=== PATIENT | female | born 1995 | race Caucasian/White ===

== ENCOUNTER 2017-08-17 15:06 | Emergency (ER) | payer MEDICAID ==
[~2017-08-17] VITALS: Ht 160 cm; Wt 58.6 kg
[~2017-08-17 15:06] MED LIST: BIRTH CONTROL
[2017-08-17 17:09] VITALS: BP 107/63
[2017-08-17] MEDS ORDERED: KETOROLAC 30 MG/1 ML ONE (17:25)
[2017-08-17] MEDS ORDERED: KETOROLAC 60 MG/2 ML IM ONE (17:30)
== END 2017-08-17 17:36 | disposition home or self-care (01) ==
LOC: ED 17:30
DX: S16.1XXA Strain of muscle, fascia and tendon at neck level, initial encounter (principal); S09.90XA Unspecified injury of head, initial encounter; X58.XXXA Exposure to other specified factors, initial encounter; Y93.89 Activity, other specified; Y92.89 Other specified places as the place of occurrence of the external cause; Y99.8 Other external cause status
CPT/HCPCS: 70450; 96372; 99284; J1885